=== PATIENT | female | born 1980 | race Caucasian/White ===

== ENCOUNTER 2018-05-30 17:41 | Emergency (ER) | payer MEDICAID, OTHER ==
[2018-05-30] MEDS: NICARDipine HCL 30 MG CAPSULE PO (21:09)
[2018-05-30] MEDS: HYDROCODONE/APAP (10/325) TAB PO (21:10)
[2018-05-30] MEDS: ONDANSETRON (ODT) 4 MG TAB ODT (21:10)
[2018-05-30] MEDS: KETOROLAC 30 MG INJ IM (23:07)
== END 2018-05-30 23:50 | disposition home or self-care (01) ==
LOC: E/R 17:41
DX: S60.221A Contusion of right hand, initial encounter (principal); I10 Essential (primary) hypertension; W18.39XA Other fall on same level, initial encounter; Y92.9 Unspecified place or not applicable
CPT/HCPCS: 29125; 73110-RT; 73130-RT; 81025; 96372; 99284-25

== ENCOUNTER 2019-03-17 10:53 | Emergency (ER) | payer SELFPAY, MEDICAID | END 2019-03-17 15:33 | disposition home or self-care (01) | LOC: FTE 10:53 | DX: R05 Cough (principal); I10 Essential (primary) hypertension | CPT/HCPCS: 71045; 87081; 87206; 93005; 99285-25 ==